=== PATIENT | male | born 1960 | race Caucasian/White ===

== ENCOUNTER → 2017-08-05 | Outpatient (CLI) | payer OTHER | END | disposition home or self-care (01) | LOC: CARD 10:07 | PROVIDERS: ATTEND Psychiatry & Neurology Neurology | DX: I63.9 Cerebral infarction, unspecified (principal); G93.40 Encephalopathy, unspecified ==

== ENCOUNTER 2019-08-08 12:45 | Emergency (ER) | payer OTHER ==
[~2019-08-08] VITALS: Ht 152.4 cm; Wt 87.0 kg
[2019-08-08 23:27] LABS: BASOPHILS % 0.7 % (0.0-2.0); EOSINOPHILS % 5.4 % (0.0-5.0); HEMATOCRIT. 47.3 % (42.0-52.0); HEMOGLOBIN. 16.1 g/dL (14.0-18.0); LYMPHOCYTES % 25.2 % (20.0-50.0); MEAN CORPUSCULAR HEMOGLOBIN 30.1 pg (28.0-32.0); MEAN CORPUSCULAR VOLUME 88.6 fL (80.0-94.0); MONOCYTES % 11.1 % (2.0-8.0); NEUTROPHILS % 57.6 % (40.0-76.0); PLATELET 176 x1000/uL (130-400); RED BLOOD CELL COUNT 5.34 mill/uL (4.7-6.1); RED CELL DISTRIBUTION WIDTH 14.1 % (11.6-14.6)
[2019-08-08 23:29] LABS: CHLORIDE 107 mEq/L (98-107)
[2019-08-09 00:20] VITALS: BP 155/74
== END 2019-08-09 00:21 | disposition home or self-care (01) ==
LOC: ER 12:45
DX: R07.89 Other chest pain (principal); B02.9 Zoster without complications; Z86.73 Personal history of transient ischemic attack (TIA), and cerebral infarction without residual deficits; I25.10 Atherosclerotic heart disease of native coronary artery without angina pectoris
CPT/HCPCS: 36415; 71045; 80053; 83880; 84484; 85025; 93005; 99284